=== PATIENT | male | born 1975 | race Caucasian/White ===

== ENCOUNTER 2019-12-17 11:52 | Emergency (ER) | payer BC, SELFPAY ==
[2019-12-17 12:06] VITALS: BP 119/63; PULSE 74; RESP 16; TEMP 36.2; O2SAT 98
--- NOTE | 2019-12-17 12:36 | ED.BACK ---
HPI - Back Pain/Injury General Chief Complaint: Back Pain/Injury Stated Complaint: back pain Time Seen by Provider: 12/17/19 12:36 Source: patient and RN notes reviewed Mode of arrival: ambulatory Limitations: no limitations History of Present Illness HPI Narrative: 44-year-old male presents with concern for left low back pain for 3 days. Denies any injury, trauma. Denies fever, perianal anesthesia, loss of bowel or bladder function, hematuria, scrotal pain, abdominal pain, nausea, vomiting. Reports pain worsens with position changes, bending, twisting. MD elicited complaint: back pain Related Data Home Medications Medication Instructions Recorded Confirmed Aspir-81 12/17/19 Fish Oil 12/17/19 multivitamin 12/17/19 Allergies Allergy/AdvReac Type Severity Reaction Status Date / Time No Known Allergies Allergy Mild Unverified 09/08/07 17:14 Review of Systems Review of Systems: Narrative: CONSTITUTIONAL: Denies malaise, chills, sweats, or fever. CARDIOVASCULAR: Denies chest pain, palpitations, or edema. RESPIRATORY: Denies cough or dyspnea. GASTROINTESTINAL: Denies abdominal pain, nausea, vomiting, diarrhea, bloody, or mucous stools. GENITOURINARY: Denies dysuria or hematuria. SKIN: Denies bruising, redness MUSCULOSKELETAL: Reports left low back pain that radiates to the left buttock and thigh NEUROLOGIC: Denies numbness, weakness, or headache. All systems reviewed & are unremarkable except as noted in HPI and below PMFSH Social History Social History Smoking status: Former smoker Smoking end date: 08/03/04 Alcohol intake: current Comments At time of signature, agree with nursing past medical, surgical, social and family history. There is no relevant family history pertinent to the presenting complaint Exam Narrative: Exam Narrative: GENERAL: Well-appearing, well-nourished, and in no acute distress. HEAD: Normocephalic, atraumatic. EYES: PERRLA and EOMI. NECK: Supple. No lymphadenopathy. CHEST: Clear to auscultation. No respiratory distress. HEART: Regular rate and rhythm. Distal pulses palpable and equal, cap refill <3 seconds ABDOMEN: Soft, nontender, nondistended, normal active bowel sounds, no palpable or pulsatile masses. No CVA tenderness MUSCULOSKELETAL: Normal range of motion and strength in all extremities; 5/5 strength with hip flexion and extension, dorsiflexion and extension, knee flexion and extension, plantar flexion and extension. Normal sensation in dermatomal distributions with sensitivity to light touch and pain. No midline back tenderness to palpation. No paraspinal tenderness. Transfers from lying to sitting to standing. SKIN: Warm, dry, no rash. No ecchymosis, erythema, open wounds to back. NEURO: No focal deficits. Alert and oriented x3. Reflexes intact. Normal gait. PSYCH: Normal mood and affect Course Course Emergency Course: Patient is aware of diagnosis, understands and agrees to treatment plan. Anticipatory guidance given. Patient agrees to follow-up as directed and is aware of reasons to seek care at the emergency department. Portions of this record may have been created with voice recognition software Vital Signs Vital signs: Vital Signs Temperature 97.1 F L 12/17/19 12:06 Pulse Rate 74 12/17/19 12:06 Respiratory Rate 16 12/17/19 12:06 Blood Pressure 119/63 12/17/19 12:06 Pulse Oximetry 98 12/17/19 12:06 Temperature 97.1 F L 12/17/19 12:06 Pulse Rate 74 12/17/19 12:06 Respiratory Rate 16 12/17/19 12:06 Blood Pressure 119/63 12/17/19 12:06 Pulse Oximetry 98 12/17/19 12:06 Reviewed. MDM - Back Pain/Injury MDM Narrative Medical decision making narrative: No risk factors or findings concerning for epidural abscess, diskitis, vertebral osteomyelitis, cord compression, cauda equina, vertebral fracture or bone malignancy, AAA, or pyelonephritis. Patient instructed to consider further imaging and workup through their primary care phy
== END 2019-12-17 12:45 | disposition home or self-care (01) ==
PROVIDERS: Emergency Provider Nurse Practitioner; PCP Family Medicine
DX: M54.5 Low back pain (principal); Z87.891 Personal history of nicotine dependence; I10 Essential (primary) hypertension; Z95.2 Presence of prosthetic heart valve
CPT/HCPCS: 99213; G0463

== ENCOUNTER 2019-12-22 06:24 | Emergency (ER) | payer BC, SELFPAY ==
--- NOTE | ~2019-12-22 | CT_ITS ---
EXAMINATION: CT lumbar spine wo con DATE: 12/22/2019 07:37 INDICATION: Low back pain TECHNIQUE: Computed tomography (CT) of the lumbar spine was performed without intravenous contrast. A utomated exposure control and iterative reconstruction technique were employed. The dose-length produ ct was 1101.52 mGy-cm. COMPARISON: None FINDINGS: 3 mm retrolisthesis L4 on L5. There is severe disc height loss with vacuum phenomena and mild degener ative endplate changes at L5-S1. There is vacuum phenomena within the disc space as well as at the po sterior peripheral margin of a large central disc extrusion which will be further detailed below. Giulia tebral body heights are normal. No fractures. Additional mild disc height loss at T12-L1, L1-L2 and L 4-L5. The mid to upper lumbar central canal is congenitally small. Paravertebral soft tissues are unr emarkable. The following disc levels are specifically discussed: T12-L1: The disc does not extend beyond the endplate margin. There is mild bilateral facet joint oste oarthritis. There is no neural foraminal stenosis. There is no central canal stenosis. L1-L2: The disc does not extend beyond the endplate margin. There is mild bilateral facet joint osteo arthritis. There is no neural foraminal stenosis. There is no central canal stenosis. L2-L3: Disc is mildly bulging. There is altered left and moderate right facet joint osteoarthritis. T here is no neural foraminal stenosis. There is no central canal stenosis. L3-L4: Disc is mildly bulging. There is mild left and mild to moderate right facet joint osteoarthrit is. There is mild bilateral neural foraminal stenosis. There is mild central canal stenosis. L4-L5: Disc is bulging. There is mild left and mild to moderate right facet joint osteoarthritis. The re is mild to moderate bilateral neural foraminal stenosis. There is mild central canal stenosis at t he level of the disc. There is moderate stenosis cephalad to the level of the disc and severe stenosi s: The level of the disc due to increased epidural fat. L5-S1: Disc is bulging with superimposed annular fissure and large central disc extrusion which exten ds from foraminal zone to foraminal zone with disc material extending 6 mm caudal to the level of the superior endplate of S1 as previously noted there is a 9 x 5 x 4 mm collection of gas likely related to vacuum phenomena which occupies a significant portion of the remaining central canal which projec ts beyond the margins of the disc extrusion is unclear whether this represents vacuum phenomena from the disc space, vacuum phenomena within within a synovial cyst arising from the left facet joint or s mall amount of gas of indeterminate etiology trapped within the thecal sac. No stranding within the e pidural fat to suggest an inflammatory process. There is mild to moderate left and mild right facet j oint osteoarthritis. There is moderate bilateral neural foraminal stenosis. There is moderate to prachi re central canal stenosis. IMPRESSION: 1. Severe spondylosis with annular fissure and extruded disc at L5-S1. Small collection of gas at the periphery of the disc extrusion could represent vacuum phenomena either within the extrusion, within an adjacent synovial cyst or of indeterminate etiology within the thecal sac. Mild spondylosis in th e more cephalad lumbar spine. 2. Central canal stenosis in the lower lumbar spine disproportionate to the degree of spondylosis in part to both a congenitally small central canal as well as increased epidural fat. Reviewed, dictated and finalized at location A. IMPRESSION: 1. Severe spondylosis with annular fissure and extruded disc at L5-S1. Small co llection of gas at the periphery of the disc extrusion could represent vacuum vivienne westbrook
[2019-12-22 06:30] VITALS: BP 147/81; PULSE 81; RESP 16; TEMP 36.1; O2SAT 96
--- NOTE | 2019-12-22 07:19 | ED.BACK ---
HPI - Back Pain/Injury General Chief Complaint: Back Pain/Injury Stated Complaint: LEFT LEG NUMB Time Seen by Provider: 12/22/19 07:02 Source: patient Mode of arrival: ambulatory Limitations: no limitations History of Present Illness HPI Narrative: THis patient is a 44 year old male who presents with c/o lower back pain x 1 week. Patient states he noticed pain to his lower back last week. He was evaluated at [facility] on 12/17/19 and he was prescribed flexeril. He has also been taking ibuprofen 600 mg every 6 hours . He reports his pain was improving but he noticed last night his pain radiated down his left leg. He states he also had some numbness to left leg but it resolved on his way to ER. He denies associated fever, chills, nausea, vomiting, focal weakness, urinary or bowel incontinence or saddle anesthesia. He was told to follow up with his PCP but he has not called to arrange appointment. MD elicited complaint: back pain Timing: intermittent Pain scale (0-10): 6 Location: lumbar spine Radiation: buttocks and left upper leg Associated symptoms: denies other symptoms and numbness Treatments prior to arrival: NSAIDS Related Data Home Medications Medication Instructions Recorded Confirmed Aspir-81 12/17/19 Fish Oil 12/17/19 multivitamin 12/17/19 Allergies Allergy/AdvReac Type Severity Reaction Status Date / Time No Known Allergies Allergy Mild Unverified 12/22/19 06:35 Review of Systems Review of Systems: All systems reviewed & are unremarkable except as noted in HPI and below Constitutional: Constitutional: Denies chills and Denies fever(s) Gastrointestinal: Gastrointestinal: Denies abdominal pain, Denies diarrhea, Denies nausea and Denies vomiting Genitourinary: Genitourinary: Denies hematuria, Denies oliguria, Denies dysuria and Denies urinary frequency Musculoskeletal: Musculoskeletal: Reports back pain Neurologic: Denies headache(s), Denies focal weakness, Reports numbness and Denies weakness PMF Past Medical History Medical History (Updated 12/22/19 @ 08:39 by Kelsey Isaac MD) Essential (primary) hypertension Generalized anxiety disorder Surgical History Surgical History (Updated 12/22/19 @ 07:20 by Kelsey Isaac MD) History of prosthetic heart valve Social History Social History Smoking status: Former smoker Smoking end date: 08/03/04 Alcohol intake: current Gender identity (if verbalized by the patient): Male Exam Const: General: no acute distress and alert Orientation/consciousness: patient oriented x3 HENMT: Head: normocephalic and atraumatic Face and sinus: sinuses nontender and face symmetric Throat: tonsils normal and uvula midline Eyes: Pupils: Equal, round and reactive pupils present EOM: EOMs intact bilaterally Chest: Chest palpation & inspection: normal inspection of the chest Resp: Effort & Inspection: normal respiratory effort and no retractions Auscultation: clear to auscultation bilaterally Cardio: Rate: regular rate Rhythm: regular rhythm Heart sounds: Murmur heart sound present systolic GI: Auscultation: normal bowel sounds Back/Spine/Pelvis: Back: no CVA tenderness Skin: General skin exam: normal color Rashes: no rashes Neuro: General: patient oriented x3, moves all extremities, no meningeal signs, no focal motor deficits and CN's II-XI intact bilaterally Cranial nerves: Yes CN's II-XII intact bilaterally Speech: normal speech Gait exam (Neuro): Normal gait present Motor exam (neuro): 5/5 motor strength present throughout Sensory Exam: normal sensation Extrem: General: normal to inspection and no pedal edema Psych: Mental Status: mental status grossly normal Course Consultations Consultation #1: I Discussed CT findings with Dr. Booth, [facility], who will follow up patient as outpatient. He will need outpatient MRI and pain management Date: 12/22/19 Time: 08:31 Consultation #2: I Discussed case with
[2019-12-22] MEDS: methylPREDNISolone SOD SUCC 125 MG VIAL IM (07:25)
[2019-12-22] MEDS: ONDANSETRON HCL ODT 4 MG TABLET PO (07:25)
[2019-12-22] MEDS: KETOROLAC (*BKC) 60 MG/2 ML VIAL IM (07:26)
[2019-12-22 08:55] VITALS: BP 124/60; PULSE 70; RESP 16; O2SAT 98
== END 2019-12-22 08:55 | disposition home or self-care (01) ==
PROVIDERS: Emergency Provider General Practice; PCP Family Medicine
DX: M51.16 Intervertebral disc disorders with radiculopathy, lumbar region (principal); I10 Essential (primary) hypertension; Z87.891 Personal history of nicotine dependence
CPT/HCPCS: 72131; 96372; 99284; A9270; J1885; J2930

== ENCOUNTER 2020-01-04 12:55 | Outpatient (CLI) | payer BC, SELFPAY ==
--- NOTE | ~2020-01-04 | MR_ITS ---
EXAMINATION: MR lumbar spine wo con DATE: 01/04/2020 13:55 INDICATION: Lumbar spinal stenosis with neurogenic claudication. TECHNIQUE: Magnetic resonance imaging (MRI) of the lumbar spine was performed without intravenous con trast. Sequences included sagittal T2-weighted FSE, sagittal T2-weighted FS FSE, sagittal T1-weighted FSE, and axial T2-weighted FSE. COMPARISON: CT lumbar spine 12/22/2019 FINDINGS: There is 3 mm retrolisthesis of L5 on S1. There is mild chronic anterior wedging of T12 and L1 vertebral bodies. There are Schmorl's nodes at T11-T12 and T12-L1. There is mildly decreased disc height at L4-L5 and severely decreased disc height at L5-S1. Epidural lipomatosis is noted. The dist al spinal cord signal intensity is normal. The conus medullaris is at L1. The following disc levels a re specifically discussed: L1-L2: The disc does not extend beyond the endplate margin. There is mild bilateral facet joint osteo arthritis. There is no neural foraminal stenosis. There is no central canal stenosis. L2-L3: The disc does not extend beyond the endplate margin. There is moderate right and mild left fac et joint osteoarthritis. There is no neural foraminal stenosis. There is no central canal stenosis. L3-L4: The disc does not extend beyond the endplate margin. There is mild bilateral facet joint osteo arthritis. There is no neural foraminal stenosis. There is no central canal stenosis. L4-L5: The disc is bulging and has an annular fissure. There is mild bilateral facet joint osteoarthr itis. There is mild bilateral neural foraminal stenosis. There is mild central canal stenosis. L5-S1: The disc is bulging with superimposed left central extrusion that abuts the left S1 nerve root . There is moderate bilateral facet joint osteoarthritis. There is mild right and moderate left neura l foraminal stenosis. There is mild central canal stenosis. IMPRESSION: 1. Severe lower lumbar spondylosis. Reviewed, dictated and finalized at location A.
== END 2020-01-04 12:56 | disposition home or self-care (01) ==
PROVIDERS: PCP Family Medicine; Visit Provider Family Medicine
DX: M48.061 Spinal stenosis, lumbar region without neurogenic claudication (principal); M47.816 Spondylosis without myelopathy or radiculopathy, lumbar region
CPT/HCPCS: 72148

== ENCOUNTER 2020-03-21 21:51 | Inpatient (IN) | payer BC, SELFPAY ==
--- NOTE | ~2020-03-21 | CT_ITS ---
EXAMINATION: CT brain wo con DATE: 03/22/2020 15:47 INDICATION: Confusion TECHNIQUE: Computed tomography (CT) of the head was performed without intravenous contrast. Sagittal and coronal reconstructions were performed. The mA was adjusted according to patient size. Iterative reconstruction technique was employed. The dose-length product was 681.00 mGy-cm. COMPARISON: None FINDINGS: No acute intracranial hemorrhage, acute infarction or abnormal extra axial fluid collection. Ventricl es are normal and symmetric. No mass/mass effect. The orbits, paranasal sinuses and mastoid air cells are normal. IMPRESSION: 1. Normal brain. No acute intracranial process. Reviewed, dictated and finalized at location A.
--- NOTE | ~2020-03-21 | CT_ITS ---
EXAMINATION: CTA chest abdomen pelvis DATE: 03/21/2020 23:17 INDICATION: Chest pain, hypotension and fever. TECHNIQUE: Computed tomographic angiography (CTA) of the chest, abdomen, and pelvis was performed wit hout and with 100 mL Omnipaque-350 intravenous contrast. Volume-rendered 3D-reconstructions of the ao rta and large arteries were constructed by the technologist on a separate workstation. Automated expo sure control and iterative reconstruction technique were employed. The dose-length product was 2164 m Gy-cm. COMPARISON: None FINDINGS: Chest: There are patchy groundglass opacities throughout both lungs most prominent in the dependent lower lo bes. There are a few scattered <4 mm pulmonary nodules predominantly at the posterior segment of the right upper lobe. Tiny left pleural effusion. Mild discoid atelectasis in the lingula and left lower lobe. Heart size is normal. No pericardial effusion. Median sternotomy wires and aortic valve repair. Thoracic aorta is normal in caliber with no dissection. Although not performed as a dedicated pulmon louise embolism protocol there is relatively good contrast opacification of the pulmonary arteries demon strating no pulmonary embolism. Mild right hilar and right paratracheal lymphadenopathy which is like ly reactive. Mild bilateral gynecomastia. Abdomen/pelvis: Liver, gallbladder, pancreas, bilateral adrenal glands and left kidney are normal. A couple tiny low- attenuation likely cyst in the right kidney which are too small to definitively characterize. There a re several small hypoenhancing lesions in the spleen the majority are seen peripherally which may con sidering suggests possibility of infection or infarcts. Bowels including the appendix are normal. Kyle dder is normal. No free intraperitoneal gas or fluid. No pathologically enlarged abdominal or pelvic lymphadenopathy. Normal caliber abdominal aorta with no dissection. Incidentally noted are bilateral accessory renal arteries. Severe spondylosis at the lumbosacral junction. IMPRESSION: 1. Normal aorta with no aneurysm or dissection. 2. Patchy groundglass opacities throughout both lungs with dependent predominance which would favor a telectasis or mild pulmonary edema over pneumonia. 3. A few small nodules most prominently in the posterior segment of the right upper lobe which are mo st likely infectious/inflammatory in etiology. 4. Several nonspecific small hypoenhancing lesions at the spleen, several with peripheral wedge-shape d appearance suggesting infarcts with differential including granulomatous disease. 5. Mild right hilar and right paratracheal lymphadenopathy which is likely reactive. Reviewed, dictated and finalized at location A. IMPRESSION: 1. Normal aorta with no aneurysm or dissection. 2. Patchy groundglass opacities throughout both lungs with dependent predominan ce which would favor atelectasis or mild pulmonary edema over pneumonia. 3. A few small nodules most prominently in the posterior segment of the right u pper lobe which are most likely infectious/inflammatory in etiology. 4. Several nonspecific small hypoenhancing lesions at the spleen, several with peripheral wedge-shaped appearance suggesting infarcts with differential includ ing granulomatous disease. 5. Mild right hilar and right paratracheal lymphadenopathy which is likely reac tive.
[2020-03-21 21:53] VITALS: BP 89/60; PULSE 108; RESP 17; TEMP 36.9; O2SAT 98
--- NOTE | 2020-03-21 21:54 | ED.CHESTPAIN ---
HPI - Chest Pain General Chief Complaint: Chest Pain Stated Complaint: Chest pain Time Seen by Provider: 03/21/20 21:54 Source: patient and family Mode of arrival: ambulatory Limitations: no limitations History of Present Illness HPI narrative: Patient is a 44-year-old male with a history of aortic valve replacement 2008, 2014, who presents to the emergency department for evaluation of chest pain. Patient states he has had chest pain this evening that started approximately 2 hours ago. Described as initial pressure over the chest with radiation to the right shoulder. Associated diaphoresis, denies nausea, vomiting or shortness of breath. Patient states he used to be on anticoagulation, but that was discontinued after his last valve replacement. Patient has been seeing Dr. Malik's office for work-up of fever, myalgias and has had 2- COVID swabs, relatively unremarkable laboratory testing since late January. Patient had an echocardiogram done in Dr. Yoder's office today, but does not have the results of this back yet. Patient denies any sick contacts. No rhinorrhea, sore throat, cough. No leg swelling, rashes, denies any leg pain. Related Data Home Medications Medication Instructions Recorded Confirmed aspirin 81 mg tablet,delayed 81 mg PO DAILY 12/28/19 release multivitamin 1 tablet PO DAILY 12/28/19 omega-3 fatty acids 1,000 mg 1,000 mg PO DAILY 12/28/19 capsule Allergies Allergy/AdvReac Type Severity Reaction Status Date / Time No Known Allergies Allergy Mild Unverified 03/21/20 22:02 Review of Systems Review of Systems: Narrative: CONSTITUTIONAL: Reports fever, chills, diaphoresis EYES: Denies visual changes, redness, or discharge. ENT: Denies rhinorrhea, congestion, sore throat, or otalgia. CARDIOVASCULAR: Reports chest pain, denies palpitations, or edema. RESPIRATORY: Denies cough or dyspnea. GASTROINTESTINAL: Denies abdominal pain, nausea, vomiting, or diarrhea. GENITOURINARY: Denies dysuria or hematuria. SKIN: Denies rash or itching. MUSCULOSKELETAL: Denies back pain, joint pain, or myalgia. NEUROLOGIC: Denies headache, numbness, or weakness. ON LICENSE OF [facility] Past Medical History Medical History (Updated 03/22/20 @ 00:09 by Kimberly Villalta MD) Elevated liver enzymes Essential (primary) hypertension Generalized anxiety disorder Herniated lumbar intervertebral disc senior living (current) use of anticoagulants Prediabetes Pure hypercholesterolemia, unspecified Surgical History Surgical History History of prosthetic heart valve Social History Social History Smoking status: Former smoker Smoking end date: 08/03/04 Alcohol intake: current Gender identity (if verbalized by the patient): Male Exam Narrative: Exam Narrative: GENERAL: Awake, alert, conversant HEAD: Normocephalic, atraumatic. EYES: PERRLA and EOMI. ENT: Nares clear, no rhinorrhea or epistaxis. Mucous membranes moist. NECK: Supple. CHEST: No respiratory distress, breathing even and non labored HEART: Regular rate, sinus rhythm ABDOMEN:Non distended, non tender EXTREMITIES: Normal range of motion. No edema. SKIN: Warm, dry, no rash. NEURO:No focal deficits. Alert and oriented x3 Course Vital Signs Vital signs: Vital Signs Temperature 36.9 C 03/21/20 21:53 Pulse Rate 108 H 03/21/20 21:53 Respiratory Rate 17 03/21/20 21:53 Blood Pressure 89/60 L 03/21/20 21:53 Pulse Oximetry 98 03/21/20 21:53 Temperature 36.9 C 03/21/20 21:53 Pulse Rate 88 03/21/20 23:40 Respiratory Rate 16 03/21/20 23:40 Blood Pressure 106/69 03/21/20 23:40 Pulse Oximetry 96 03/21/20 23:40 MDM - Chest Pain MDM Narrative Medical decision making narrative: Patient is a 44-year-old male with a history of aortic valve replacement in [address] Yoder who presented for evaluation of chest
--- NOTE | 2020-03-21 22:10 | ECG_ITS ---
Measurements Intervals [place] Rate: 101 P: 31 OH: 135 QRS: 52 QRSD: 100 T: 65 QT: 380 QTc: 495 Interpretive Statements SINUS TACHYCARDIA DELAYED PRECORDIAL R/S TRANSITION MINIMAL Q WAVES- INFERIOR LEADS BORDERLINE ST ABNORMALITY- HIGH LATERAL LEADS BASELINE ARTIFACT- I, III BORDERLINE ECG Electronically Signed On 03-22-2020 7:01:51 CDT by Nj Cota D.O.
[2020-03-21] MEDS: ASPIRIN 81 MG CHEWABLE TABLET 324 MG PO (22:19)
[2020-03-21] MEDS: SODIUM CHLORIDE 0.9% IV 1,000 ML 999 ML IV CONT ×2 (22:19→22:53)
[2020-03-21 22:36] LABS: Basophils Percent Auto 0.3 % (0.2-1.2); Eosinophils Percent Auto 0.2 % (0-4.4); Immature Granulocyte Absolute 0.09 K/mm3 (0.00-0.031); Immature Granulocyte Percent A 0.7 % (0-0.5); Lymphocytes Percent Auto 7.5 % (18.3-44.2); Mean Corpuscular HGB Conc 33.3 g/dl (32-36); Mean Corpuscular Hemoglobin 28.9 pg (26-34); Mean Corpuscular Volume 86.6 fl (80-100); Mean Platelet Volume 8.7 fl (7.4-10.4); Monocytes Absolute Auto 1.1 K/mm3 (0.1-0.6); Monocytes Percent Auto 8.3 % (2.6-8.5); Neutrophils Absolute Auto 11.1 K/mm3 (1.3-6.7); Platelet Count Result 186 k/mm3 (150-375); Red Blood Count 3.81 M/mm3 (4.6-6.20); White Blood Count 13.3 K/mm3 (4.5-10.0)
[2020-03-21 22:45] LABS: INR 1.3; Prothrombin Time 15.8 Seconds (11.1-14.7)
[2020-03-21 22:46] LABS: Partial Thromboplastin Time 42.8 SECONDS (22.3-36.8)
[2020-03-21 22:51] LABS: Lactic Acid Reflex 1.5 mmol/L (0.7-2.1)
[2020-03-21 22:55] LABS: Alanine Aminotransferase 49 U/L (4-50); Albumin Level 3.6 g/dL (3.5-5.1); Alkaline Phosphatase 94 U/L (38-126); Anion Gap 11 mmol/L (8-16); Aspartate Amino Transferase 75 U/L (17-59); Bilirubin,Total 0.6 mg/dL (0.2-1.3); Blood Urea Nitrogen 2 mg/dL (9-20); Calcium 8.4 mg/dL (8.4-10.2); Carbon Dioxide 26 mmol/L (22-30); Chloride 98 mmol/L (98-107); Estimated CRCL calculation 120 ml/min; Estimated Glomerular Filt Rate > 60; Glucose 135 mg/dL (75-110); Sodium 135 mmol/L (137-145)
[2020-03-21 23:11] LABS: CRP 20.2 mg/dL (<1.0); NT Pro B Type Natriuretic Pept 4100 PG/ML (5-100)
[2020-03-21 23:40] VITALS: BP 106/69; PULSE 88; RESP 16; O2SAT 96
[2020-03-22] VITALS (19 sets, daily range): BP systolic 90–151; BP diastolic 62–87; PULSE 78–126; RESP 18–40; TEMP 36.3–39.7; O2SAT 93–100; BMI 33.8
[2020-03-22] MEDS: ENOXAPARIN 100 MG/ML SYRINGE SUB-Q ×3 (00:02→22:00)
--- NOTE | 2020-03-22 01:21 | PM.IMHP ---
H&P: HPI History of Present Illness Date/Time: 03/22/20 01:21 Chief complaint: Elevated troponin, chest pain Narrative: This is a 44 year old male with known bioprosthetic aortic valve replaced in 2014 who presented to the hospital with a complaint of midsternal chest pain that radiated towards his back. He described his pain as pressure like and lasting approximately 15 minutes in duration. His chest pain resolved with time and did not require any medications. Associated symptoms included diaphoresis. Tonight he denies any recent swelling, cough, or shortness of breath. He believes that he has had fevers over the past month and has been tested for COVID-19 by his PCP approximately 4 days ago which was negative. He underwent an Echocardiogram today at his Patient Access Manager's office, Dr. Yoder. Currently the pateint is asymptomatic and has no complaints. In the ER tonight the patient was evaluated and his troponin was elevated at 1.260. EKG was obtained and did not demonstrate any ST segment deviation. Cardiology was consulted by ER provider and has asked that we admit the patient to the hospital for them and they will evaluate him in the morning. CTA chest was obtained which demonstrated patchy groundglass opacities throughout both lungs. He was swabbed for COVID-19. Review of Systems Review of Systems: All systems reviewed & are unremarkable except as noted in HPI and below PMFSH Past Medical History Medical History Elevated liver enzymes Essential (primary) hypertension Generalized anxiety disorder Herniated lumbar intervertebral disc [facility] (current) use of anticoagulants Prediabetes Pure hypercholesterolemia, unspecified Surgical History Surgical History History of prosthetic heart valve Social History Social History Smoking status: Former smoker Smoking end date: 08/03/04 Alcohol intake: current Substance use: unknown Gender identity (if verbalized by the patient): Male Sexual Orientation (if Verbalized by the Patient): Straight or Heterosexual Spiritual care concerns: No Comments [facility] reviewed and noncontributory. Meds Home Medications and Allergies Home Medications Medication Instructions Recorded Confirmed Type sertraline 100 mg tablet 100 mg PO DAILY #90 tablet 08/19/19 03/22/20 Rx losartan 25 mg tablet 25 mg PO BID #180 tablet 09/30/19 03/22/20 Rx aspirin 81 mg tablet,delayed 81 mg PO DAILY 12/28/19 03/22/20 History release multivitamin 1 tablet PO DAILY 12/28/19 03/22/20 History omega-3 fatty acids 1,000 mg 1,000 mg PO DAILY 12/28/19 03/22/20 History capsule alprazolam 0.5 mg tablet 0.5 mg PO DAILY PRN #10 tablet 01/02/20 03/22/20 Rx metoprolol succinate 50 mg 50 mg PO DAILY #90 tablet 03/16/20 03/22/20 Rx tablet,extended release 24 hr cyclobenzaprine 10 mg tablet 10 mg PO TID PRN #60 tablet 03/19/20 03/22/20 Rx Allergies Allergy/AdvReac Type Severity Reaction Status Date / Time No Known Allergies Allergy Mild Unverified 03/21/20 22:02 Vital Signs Vital Signs - 24 hr 03/21/20 21:53 03/21/20 23:40 03/22/20 00:59 Temperature 36.9 C 36.8 C Pulse Rate 108 H 88 82 Respiratory Rate 17 16 18 Blood Pressure 89/60 L 106/69 106/79 Pulse Oximetry 98 96 98 Exam Const: General: cooperative, no acute distress, alert and awake Nutritional Appearance: well nourished Orientation/consciousness: patient oriented x3 HENMT: Head: normal to inspection General nose exam: Normal external nose present Face and sinus: normal facial exam Mouth: Yes Normal oral and palatal mucosa present and Yes oropharynx normal Eyes: Pupils: Equal, round and reactive pupils present EOM: EOMs intact bilaterally Neck: Neck: supple and no JVD Thyroid: thyroid normal Lymphatic: lymphadenopathy not noted Resp: Effort [employer] Inspe
[2020-03-22] MEDS: ALPRAZolam 0.5 MG TABLET PO (06:42)
[2020-03-22] MEDS: KETOROLAC 15 MG/ML VIAL (*BKC) IV PUSH (08:41)
[2020-03-22] MEDS: METOPROLOL SUCCINATE EXT REL 50 MG TABCR PO (08:45)
[2020-03-22] MEDS: MULTIVITAMINS THERAPEUTIC TAB (*BKC) 1 TABLET PO (08:45)
[2020-03-22] MEDS: ASPIRIN 81 MG ENTERIC TABLET PO (08:45)
[2020-03-22] MEDS: OMEGA 3 POLYUNSAT FATTY ACIDS 1 GM CAP PO (08:45)
[2020-03-22] MEDS: LOSARTAN POTASSIUM 25 MG TABLET PO ×2 (08:46→18:00)
[2020-03-22] MEDS: SERTRALINE HCL 50 MG TABLET 100 MG PO (08:46)
[2020-03-22 08:54] LABS: Alveolar/Arterial O2 Gradient 130.2 mmHg; Fractional Inspired Oxygen 32 %; HCO3 ABG 20.3 mEq/l (22.0-26.0); Oxygen Content ABG 14.6 %vol (16.0-22.0); Oxygen Saturation ABG 94.9 % (95.0-100.0); Oxyhemoglobin 92.3 % THb (90.0-100.0); PCO2 ABG 27.1 mmHg (35.0-45.0); PO2 ABG 66.3 mmHg (80.0-100.0); PO2 FiO2 Ratio Arterial Blood 2.07 %; Total Hemoglobin 11.2 g/dL (12.0-18.0); pH ABG 7.492 (7.350-7.450)
[2020-03-22 08:55] LABS: Site Drawn RIGHT BRACHIAL
[2020-03-22 08:56] LABS: Device NASAL CANNULA
[2020-03-22 09:02] LABS: Lactic Acid Reflex 1.4 mmol/L (0.7-2.1)
[2020-03-22] MEDS: SODIUM CHLORIDE 0.9% IV 1,000 ML 999 ML IV CONT (09:35)
--- NOTE | 2020-03-22 12:09 | WPDCNINT ---
Assessment and Plan Assessment and plan (1) Sepsis: Code(s): A41.9 - Sepsis, unspecified organism Status: Acute Assessment and Plan: Patient presented with elevated white count, fever and was tachypneic this morning with shortness of breath. Initially I thought patient has either COVID-19 or community-acquired pneumonia this morning when I saw the patient after reviewing his CT. I checked ABG, lactic acid. Patient was given IV fluid bolus 1 L only due to elevated BNP and ground-glass opacities on his CT. I ordered echo at that time. Patient was started on empiric Rocephin and azithromycin for community-acquired pneumonia coverage Later I discovered the patient had echocardiogram done as an outpatient yesterday which showed mobile mass on his bioprosthetic aortic valve which suggests the patient may have infective endocarditis The lesions on his spleen on the CT. Patient denied any IV drug use. On my 2nd conversation with patient, he gave me a different history and suggested that he has been having fevers for last 1 month Lactic acid was checked this morning and was normal I will change antibiotics to vancomycin and cefepime Will likely need LADY for further evaluation of mass. Depending on blood culture and LADY results, will consult infectious disease (2) Endocarditis: Code(s): I38 - Endocarditis, valve unspecified Status: Acute Assessment and Plan: Echo done as an outpatient yesterday in the office showed 1 cm x 0.9 cm mobile mass on a prosthatic aortic valve Blood cultures sent and pending I will start empiric vancomycin and cefepime Will likely need LAYD for further evaluation (3) Chest pain: Qualifiers: Chest pain type: unspecified Qualified Code(s): R07.9 - Chest pain, unspecified Code(s): R07.9 - Chest pain, unspecified Status: Acute Assessment and Plan: chest plan appears to be pleuritic from history and exam but patient does have elevated troponin. EKG did not show ST elevation On aspirin, Lovenox, beta shruthi and losartan echocardiogram done yesterday as an outpatient reviewed further management per Cardiology (4) Elevated troponin: Code(s): R79.89 - Other specified abnormal findings of blood chemistry Status: Acute Assessment and Plan: see above (5) Suspected COVID-19 virus infection: Code(s): Z20.828 - Contact with and (suspected) exposure to other viral communicable diseases Status: Acute Assessment and Plan: COVID-19 suspected. SARS-CoV-2 PCR sent and results pending Patient is in Airborne, Droplet and Contact Isolation (6) Pure hypercholesterolemia, unspecified: Code(s): E78.00 - Pure hypercholesterolemia, unspecified Status: Chronic Assessment and Plan: Continue fish oil. (7) Essential (primary) hypertension: Code(s): I10 - Essential (primary) hypertension Status: Chronic Assessment and Plan: Monitor blood pressure. blood pressure uncontrolled range at this time Continue home antihypertensives. (8) History of prosthetic heart valve: Code(s): Z95.2 - Presence of prosthetic heart valve Status: Acute Assessment and Plan: See above Additional Plan Case discussed with Dr. Stephens and Dr. Bill. Cardiology plans to transfer pt to [facility] for further eval. Professor Of Family Medicine Consult Note Consult date: 03/22/20 Time Seen: 08:30 HPI: Derrick Garcia is a 44 year old male with past medical history of bioprosthetic aortic valve in 2014 presented last night to ED with chief complaint of chest pain. At that time patient was found to be having elevated troponin. He also mentioned fever and chills. Patient was admitted to step-down unit with acute coronary syndrome and as COVID-19 PUI. I was called by nurse to see patient emergently due to high fever and patient complaining of shortness of breath. When I saw the patient he told me that he
--- NOTE | 2020-03-22 12:24 | PM.CNCAR ---
Assessment and Plan Assessment and plan (1) Prosthetic valve endocarditis: Code(s): T82.6XXA - Infection and inflammatory reaction due to cardiac valve prosthesis, initial encounter; I38 - Endocarditis, valve unspecified Status: Acute Assessment and Plan: [address] mechanical AVR, patient mismatch. 03/[address] at [place]. Echo 03/21/20 mobile 0.9x1.0cm vegetation on bioprosthetic 23mm [employer] Ease AVR peak anamaria 5m/s mean gradient 62mmHg AVA0.8cm2 DVI .19 trivial AI, consistent with significant prosthetic valve dysfunction. Possible septic emboli to the spleen. Intermittent confusion. Elevated troponin 2.7 peak thus far. Minimal luminal irregularities on [facility] 2014. 03/20/20 Blood Cx negative x1, 03/21/20 blood cx x2 pending. Likely subacute endocarditis with over 1 month F/C, weakness, fatigue, SOB, decreased activity tolerance. Noncompliant with follow up since 2014. - CT chest abdomen pelvis does not reveal evidence of aneurysm / dissection or clear evidence of root abscess however concern remains. Transesophageal echocardiogram would be beneficial in further clarification, however, patient requires higher level of care then able to be provided at [facility] with CT surgery For likely need for redo AVR although complicated as this would be his 3rd sternotomy in 11 years. Given size of agitation and patient's clinical picture doubt antibiotics alone will successfully clear prosthetic valve endocarditis. Patient agrees to transfer to [place]. Transfer request initiated. Awaiting call back. -Continue broad-spectrum antibiotics. Patient is currently COVID rule out although has fairly recent negative COVID swab times to unlikely. CT head when negative. Systemic anticoagulation given last night and continue this a.m. by Critical Care. Patient is critically ill. Spent over 70 minutes in the care of this patient. Recommendations to follow. (2) Elevated troponin: Code(s): R79.89 - Other specified abnormal findings of blood chemistry Status: Acute Assessment and Plan: Concern for septic emboli, possible embolization to coronary arteries, anticoagulation. CT evidence of splenic infarcts. Toprol XL 50 mg daily. Caution with losartan. Monitor BP closely. Would favor reduction provided patient is not excessively hypertensive. Patient relatively hypotensive at presentation. (3) Chest pain: Qualifiers: Chest pain type: unspecified Qualified Code(s): R07.9 - Chest pain, unspecified Code(s): R07.9 - Chest pain, unspecified Status: Acute Assessment and Plan: as above. Doubt ACS with primary acute plaque rupture (4) Sepsis: Code(s): A41.9 - Sepsis, unspecified organism Status: Acute Assessment and Plan: IV ABx Azithromycin, cefepime, vancomycin. (5) Noncompliance: Code(s): Z91.19 - Patient's noncompliance with other medical treatment and regimen Status: Acute Assessment and Plan: with cardiology follow-up. (6) Suspected COVID-19 virus infection: Code(s): Z20.828 - Contact with and (suspected) exposure to other viral communicable diseases Status: Acute Assessment and Plan: History of negative swab times to as an outpatient, pending at this time. History of Present Illness History of Present Illness Consult date/time: Date of service:03/22/20 12:24 This is a cardiology consultation at the request of Requesting physician: Kimberly Villalta MD Consult reason: chest pain and Other (elevated troponin) Reason For Visit: Elevated troponin, chest pain Narrative: Patient is a 44-year-old male with past medical history significant for bicuspid aortic valve who underwent [place] mechanical 19 mm valve at [facility] 2008 for severe AI and dilated left ventricle. Patient had been noncompliant with follow-up with Dr. Willian Yoder on was last seen in the office in
[2020-03-22 13:59] LABS: SARS-CoV-2 RNA PCR Negative
[2020-03-22] MEDS: SODIUM CHLORIDE 0.9% IV 1,000 ML 100 ML IV CONT (15:54)
--- NOTE | 2020-03-22 16:05 | PM.TDS ---
Transfer Discharge Sum: Prov Provider Date of admission: 03/21/20 23:59 Primary care physician: Willian Malik MD Admitting clinician: Derrick Echevarria MD Attending physician on admission: Derrick Echevarria Consults: 03/22/20 00:01 Consult to Physician Routine Comment: Consulting Provider: Ekta Kay Reason for consultation: Elevated troponin, chest pain Has provider been notified: Yes Attending physician on discharge: Billy Stephens Discharging clinician: Billy Stephens Anticipated date of transfer: 03/22/20 Receiving physician/facility: Dr Derrick Mai at [place] (arranged by sand blaster) DS: Admitting Diagnosis Admitting Diagnosis Admitting Diagnosis: Elevated troponin, chest pain, known aortic valve mass DS: Discharge Diagnosis Discharge Diagnosis (1) Prosthetic valve endocarditis: Code(s): T82.6XXA - Infection and inflammatory reaction due to cardiac valve prosthesis, initial encounter; I38 - Endocarditis, valve unspecified Status: Acute Assessment and Plan: Echo in the Cardiology clinic on 03/21 showing 1cm mobile AV mass on the ventricular side of the prosthesis. He states he has had fevers for about 1 month. He has been tested for COVID x2 over the past few weeks. He does have splenic infarcts as well as lung nodules. CT brain not showing any concerning findings. He may need MRI if he has any neurologic changes or meningeal signs. BCx negative so consider marantic or HACEK. Fever now related to infectious process. (2) Sepsis: Code(s): A41.9 - Sepsis, unspecified organism Status: Acute Assessment and Plan: Present on admission with fever, elevated WBC and tachycardia. Related to IE. As above. (3) Chest pain: Qualifiers: Chest pain type: unspecified Qualified Code(s): R07.9 - Chest pain, unspecified Code(s): R07.9 - Chest pain, unspecified Status: Acute Assessment and Plan: EKG showing borderline ST abnormalities in the high lateral leads and poor R-wave progression. Inferior Q waves noted as well. Trop has climbed now to 3.3. Cardiology following. Echo performed in the Cardiology clinic on 03/21 showing vegitation but no wall motion abnormalities. Continue ASA, Metoprolol and Lovenox full dose. This could be related to cardiac abscess. Discussed with Cardiology with plan for transfer to tertiary hospital. (4) Elevated troponin: Code(s): R79.89 - Other specified abnormal findings of blood chemistry Status: Acute Assessment and Plan: As above. (5) Leukocytosis: Qualifiers: Leukocytosis type: unspecified Qualified Code(s): D72.829 - Elevated white blood cell count, unspecified Code(s): D72.829 - Elevated white blood cell count, unspecified Status: Acute Assessment and Plan: WBC 13K on admission. Related to above. Blood cultures from 03/20 NGTD. BCx form 03/21 pending. Continue broad spectrum abx. (6) Suspected COVID-19 virus infection: Code(s): Z20.828 - Contact with and (suspected) exposure to other viral communicable diseases Status: Acute Assessment and Plan: Patient started on droplet isolation. COVID-19 results have returned negative so isolations topped. (7) Essential (primary) hypertension: Code(s): I10 - Essential (primary) hypertension Status: Chronic Assessment and Plan: BP monitored closely in ICU setting. Metoprolol continued. (8) Generalized anxiety disorder: Code(s): F41.1 - Generalized anxiety disorder Status: Chronic Assessment and Plan: Mood stable. Continue Xanax prn. Transfer Discharge Sum: Med Medications Active and Home Medications: Home Medications sertraline 100 mg tablet 100 mg PO DAILY #90 tablet 08/19/19 [Rx Confirmed 03/22/20] losartan 25 mg tablet 25 mg PO BID #180 tablet 09/30/19 [Rx Confirmed 03/22/20] aspirin 81
--- NOTE | 2020-03-22 17:16 | PC.NURSE ---
Spoke with [facility] transfer line. Patient has been accepted and is awaiting a bed.
[2020-03-23] VITALS (14 sets, daily range): BP systolic 108–141; BP diastolic 60–89; PULSE 84–105; RESP 23–44; TEMP 36.8–37.6; O2SAT 95–100; BMI 35.4
[2020-03-23] MEDS: SODIUM CHLORIDE 0.9% IV 1,000 ML 100 ML IV CONT ×2 (05:12→19:53)
[2020-03-23 07:54] LABS: Basophils Percent Auto 0.3 % (0.2-1.2); Eosinophils Percent Auto 0.3 % (0-4.4); Hematocrit 28.4 % (42.0-52.0); Hemoglobin 9.3 g/dL (14.0-18.0); Immature Granulocyte Absolute 0.13 K/mm3 (0.00-0.031); Immature Granulocyte Percent A 0.9 % (0-0.5); Lymphocytes Absolute Auto 1.06 K/mm3 (0.9-3.2); Lymphocytes Percent Auto 7.2 % (18.3-44.2); Mean Corpuscular HGB Conc 32.7 g/dl (32-36); Mean Corpuscular Hemoglobin 28.8 pg (26-34); Mean Corpuscular Volume 87.9 fl (80-100); Mean Platelet Volume 8.8 fl (7.4-10.4); Monocytes Absolute Auto 1.1 K/mm3 (0.1-0.6); Monocytes Percent Auto 7.2 % (2.6-8.5); Neutrophils Absolute Auto 12.4 K/mm3 (1.3-6.7); Neutrophils Percent Auto 84.1 % (45.5-73.1); Platelet Count Result 131 k/mm3 (150-375); Red Blood Count 3.23 M/mm3 (4.6-6.20); Red Cell Distribution Width 14.4 % (11.5-14.5); White Blood Count 14.7 K/mm3 (4.5-10.0)
[2020-03-23 08:07] LABS: Alanine Aminotransferase 37 U/L (4-50); Albumin Level 2.9 g/dL (3.5-5.1); Alkaline Phosphatase 83 U/L (38-126); Anion Gap 6 mmol/L (8-16); Aspartate Amino Transferase 64 U/L (17-59); Bilirubin,Total 0.7 mg/dL (0.2-1.3); Blood Urea Nitrogen 5 mg/dL (9-20); Calcium 7.9 mg/dL (8.4-10.2); Carbon Dioxide 24 mmol/L (22-30); Chloride 100 mmol/L (98-107); Estimated CRCL calculation 161 ml/min; Estimated Glomerular Filt Rate > 60; Glucose 118 mg/dL (75-110); Magnesium 1.6 mg/dL (1.6-2.3); Potassium 4.2 mmol/L (3.4-5.0); Sodium 130 mmol/L (137-145)
--- NOTE | 2020-03-23 08:58 | WPDINTPN ---
Progress Note: A&P Assessment and Plan (1) Sepsis: Code(s): A41.9 - Sepsis, unspecified organism Status: Acute Assessment and Plan: Patient presented on 03/23 with elevated white count, fever and was tachypnia with shortness of breath. Initially I thought patient has either COVID-19 or community-acquired pneumonia this morning when I saw the patient after reviewing his CT. I checked ABG, lactic acid. Patient was given IV fluid bolus 1 L only due to elevated BNP and ground-glass opacities on his CT. I ordered echo at that time. Patient was started on empiric Rocephin and azithromycin for community-acquired pneumonia coverage Later I discovered the patient had echocardiogram done as an outpatient yesterday which showed mobile mass on his bioprosthetic aortic valve which suggests the patient may have infective endocarditis The lesions on his spleen on the CT. Patient denied any IV drug use. On my 2nd conversation with patient, he gave me a different history and suggested that he has been having fevers for last 1 month Lactic acid was checked and was normal . Patient has been afebrile ICU and hemodynamically he has been stable white count is still elevated continue antibiotics to vancomycin and cefepime cultures negative at this time Will likely need LADY for further evaluation of mass. Continue IV fluids (2) Endocarditis: Code(s): I38 - Endocarditis, valve unspecified Status: Acute Assessment and Plan: Echo done as an outpatient yesterday in the office showed 1 cm x 0.9 cm mobile mass on a prosthatic aortic valve Blood cultures sent and negative will now continue empiric vancomycin and cefepime Will likely need LADY for further evaluation (3) Chest pain: Qualifiers: Chest pain type: unspecified Qualified Code(s): R07.9 - Chest pain, unspecified Code(s): R07.9 - Chest pain, unspecified Status: Acute Assessment and Plan: chest plan On presentation appeared to be pleuritic from history and exam but patient did have elevated troponin which have continue to increase EKG did not show ST elevation on presentation patient is on aspirin, Lovenox, beta shruthi and losartan echocardiogram done yesterday as an outpatient reviewed patient had cardiac catheterization in 2014 which showed minimal coronary disease and cardiology is concerned of embolization of coronary arteries patient is being transferred to [facility] for further evaluation (4) Elevated troponin: Code(s): R79.89 - Other specified abnormal findings of blood chemistry Status: Acute Assessment and Plan: see above (5) Suspected COVID-19 virus infection: Code(s): Z20.828 - Contact with and (suspected) exposure to other viral communicable diseases Status: Acute Assessment and Plan: COVID-19 ruled out. SARS-CoV-2 PCR was negative Patient was on Airborne, Droplet and Contact Isolation which now has been discontinued. (6) Pure hypercholesterolemia, unspecified: Code(s): E78.00 - Pure hypercholesterolemia, unspecified Status: Chronic Assessment and Plan: Continue fish oil. (7) Essential (primary) hypertension: Code(s): I10 - Essential (primary) hypertension Status: Chronic Assessment and Plan: Monitor blood pressure. blood pressure is soft at this time. I will discontinue losartan and hold beta-shruthi at this time under is blood pressure improved. (8) History of prosthetic heart valve: Code(s): Z95.2 - Presence of prosthetic heart valve Status: Acute Assessment and Plan: See above Additional Plan patient has been accepted at [facility] and is awaiting bed assignment. Subjective Date/time seen: 03/23/20 0730 Overnight events reviewed. Afebrile Vitals acceptable Patient awaits transfer to [facility] for further evaluation. This morning patient states that h
[2020-03-23] MEDS: ASPIRIN 81 MG ENTERIC TABLET PO (09:22)
[2020-03-23] MEDS: ENOXAPARIN 100 MG/ML SYRINGE SUB-Q ×2 (09:22→20:13)
[2020-03-23] MEDS: OMEGA 3 POLYUNSAT FATTY ACIDS 1 GM CAP PO (09:23)
[2020-03-23] MEDS: MULTIVITAMINS THERAPEUTIC TAB (*BKC) 1 TABLET PO (09:23)
[2020-03-23] MEDS: SERTRALINE HCL 50 MG TABLET 100 MG PO (09:23)
[2020-03-23] MEDS: oxyCODONE/ACETAMINOPHEN 5-325 MG TABLET 1 TABLET PO ×3 (11:17→20:09)
--- NOTE | 2020-03-23 19:21 | PM.TDS ---
Transfer Discharge Sum: Prov Provider Date of admission: 03/21/20 10:00 Primary care physician: Willian Malik MD Admitting clinician: Derrick Echevarria MD Attending physician on admission: Derrick Echevarria Consults: 03/22/20 00:01 Consult to Physician Routine Comment: Consulting Provider: Ekta Kay Reason for consultation: Elevated troponin, chest pain Has provider been notified: Yes Attending physician on discharge: Billy Stephens Discharging clinician: Billy Stephens Anticipated date of transfer: 03/23/20 Receiving physician/facility: Dr Derrick Mai at [place] (arranged by janitorial maintenance worker) DS: Admitting Diagnosis Admitting Diagnosis Admitting Diagnosis: Elevated troponin, chest pain, known aortic valve mass DS: Discharge Diagnosis Discharge Diagnosis (1) Prosthetic valve endocarditis: Code(s): T82.6XXA - Infection and inflammatory reaction due to cardiac valve prosthesis, initial encounter; I38 - Endocarditis, valve unspecified Status: Acute Assessment and Plan: Echo in the Cardiology clinic on 03/21 showing 1cm mobile AV mass on the ventricular side of the prosthesis. He states he has had fevers for about 1 month. He has been tested for COVID x2 over the past few weeks that are negative. He does have splenic infarcts as well as lung nodules. CT brain not showing any concerning findings. He may need MRI if he has any neurologic changes or meningeal signs. BCx negative so far so consider marantic or HACEK. Fever related to infectious process but fever curve improved. Will grow BCx out for 10 days ([facility] called and spoke with Amisha CasanovaAnna on 03/23/20). (2) Sepsis: Code(s): A41.9 - Sepsis, unspecified organism Status: Acute Assessment and Plan: Present on admission with fever, elevated WBC and tachycardia. Related to IE. As above. (3) Chest pain: Qualifiers: Chest pain type: unspecified Qualified Code(s): R07.9 - Chest pain, unspecified Code(s): R07.9 - Chest pain, unspecified Status: Acute Assessment and Plan: EKG showing borderline ST abnormalities in the high lateral leads and poor R-wave progression. Inferior Q waves noted as well. Trop has climbed now to 4.8. Cardiology following. Echo performed in the Cardiology clinic on 03/21 showing vegetation but no wall motion abnormalities. This could be related to cardiac abscess. Discussed with Cardiology with plan for transfer to tertiary hospital when bed available. Continue ASA, Metoprolol and Lovenox full dose. (4) Elevated troponin: Code(s): R79.89 - Other specified abnormal findings of blood chemistry Status: Acute Assessment and Plan: As above. (5) Leukocytosis: Qualifiers: Leukocytosis type: unspecified Qualified Code(s): D72.829 - Elevated white blood cell count, unspecified Code(s): D72.829 - Elevated white blood cell count, unspecified Status: Acute Assessment and Plan: WBC 13K on admission and worse today at 14.7K. Related to above. Blood cultures from 03/20 NGTD. BCx form 03/21 aolso NGTD. Continue broad spectrum abx. (6) Suspected COVID-19 virus infection: Code(s): Z20.828 - Contact with and (suspected) exposure to other viral communicable diseases Status: Acute Assessment and Plan: Patient started on droplet isolation for possible COVID-19. COVID results have returned negative so isolation stopped. (7) Essential (primary) hypertension: Code(s): I10 - Essential (primary) hypertension Status: Chronic Assessment and Plan: BP monitored and remained well controlled. We continued Metoprolol and Cozaar. (8) Generalized anxiety disorder: Code(s): F41.1 - Generalized anxiety disorder Status: Chronic Assessment and Plan: Mood stable. Xanax available prn. Transfer Discharge Sum: Med Medications Active
== END 2020-03-23 23:15 | disposition short-term general hospital (02) | DRG 314 ==
LOC: ANHED 22:59 → ANHICU 03-22 00:13
PROVIDERS: Internal Medicine; Internal Medicine Cardiovascular Disease; Admitting Provider Family Medicine; Emergency Provider Emergency Medicine; PCP Family Medicine; Visit Provider Internal Medicine
DX: T82.6XXA Infection and inflammatory reaction due to cardiac valve prosthesis, initial encounter (principal); A41.9 Sepsis, unspecified organism; I33.0 Acute and subacute infective endocarditis; Z20.828 Contact with and (suspected) exposure to other viral communicable diseases; I10 Essential (primary) hypertension; F41.1 Generalized anxiety disorder; R07.9 Chest pain, unspecified
CPT/HCPCS: 36415; 36600; 70450; 71275; 74174; 80053; 82805; 83605; 83735; 83880; 84443; 84484; 85025; 85610; 85730; 86140; 87040; 87077; 87635; 93005; 96361; 96365; 96372; 99285; A9270; C9803; J0131; J0456; J0692; J0696; J1650; J1885; J3370; J7030; Q9967; U0003

== ENCOUNTER 2020-05-31 16:03 | Outpatient (CLI) | payer BC, SELFPAY ==
--- NOTE | ~2020-05-31 | US_ITS ---
EXAMINATION: US venous doppler LE RT DATE: 05/31/2020 16:38 INDICATION: Right lower limb pain. TECHNIQUE: Grayscale ultrasound images without and with compression and Doppler ultrasound images of the right lower extremity veins were obtained. COMPARISON: None. FINDINGS: The visualized portions of right common femoral vein, profunda (deep) femoral vein, femoral vein, pop liteal vein, peroneal veins, posterior tibial veins, and greater saphenous vein outflow are patent. IMPRESSION: 1. No deep venous thrombosis. Reviewed, dictated and finalized at location A.
== END 2020-05-31 16:04 | disposition home or self-care (01) ==
PROVIDERS: PCP Family Medicine; Visit Provider Physician Assistant
DX: M79.661 Pain in right lower leg (principal)
CPT/HCPCS: 93971

== ENCOUNTER 2020-08-01 16:30 | Outpatient (RCR) | payer BC, SELFPAY ==
[2020-06-12 15:34] VITALS: PULSE 64
--- NOTE | 2020-08-08 15:04 | PCCPR ---
Addendum entered by Selma Thompson RN 08/13/20 11:14: Message left for Derrick requesting he give us a call back if he he has checked into his insurance.Since ours states if he he meets his deductible he is responsible for 30 % once deductible is met. Asking his plan for return or need to dc. Original Note: attempted to update patient on change to 3x per week on reduced hour schedule. MALISSA
== END 2020-08-22 16:47 | disposition home or self-care (01) ==
LOC: ANHCPREHAB 16:30
PROVIDERS: PCP Family Medicine; Visit Provider Nurse Practitioner Adult Health
DX: Z95.2 Presence of prosthetic heart valve (principal)
CPT/HCPCS: 93798

== ENCOUNTER → 2021-05-01 07:19 | Outpatient (CLI) | payer BC, SELFPAY ==
--- NOTE | ~2021-05-01 | US_ITS ---
EXAMINATION: US abdomen complete EXAM DATE: 05/01/2021 08:18 INDICATION: R74.8 - Abnormal levels of other serum enzymes. TECHNIQUE: Multiple grayscale and Doppler images of the complete abdomen were obtained (by a technolo gist who performed the scan) and subsequently reviewed. There is no prior study for comparison. FINDINGS: The abdominal aorta is normal in caliber. Visualized portion IVC is patent. The pancreatic head a nd body are normal in appearance. The pancreatic tail is not visualized. The liver has normal echogenicity and contour. There are no focal liver lesions identified. There is no evidence of intrahepatic biliary duct dilation. Portal venous flow was seen in the hepatopedal , normal direction and has normal Doppler waveform. Common bile duct measures 3 mm, which is normal. The gallbladder wall is normal in thickness, with ex pected amount of distention. No sonographic evidence of pericholecystic fluid. There is no cholelit hiases. Technologist performing exam reports patient did not demonstrate sonographic Cárdenas's sign. Please note that this sign is less reliable in patients who have received pain medication. Right kidney: There is normal contour and echogenicity. It measures 10.5 x 5.2 x 6.7 centimeters. There are no focal renal lesions identified. There is no hydronephrosis. Left kidney: There is normal contour and echogenicity. It measures 10.6 x 6.0 x 5.7 centimeters. T here are no focal renal lesions identified. There is no hydronephrosis. The spleen measures 10.7 centimeters and is morphologically normal. IMPRESSION: 1. Unremarkable complete abdominal ultrasound exam. Reviewed, dictated and finalized at location A.
== END ==
PROVIDERS: PCP Family Medicine; Visit Provider Family Medicine
DX: R74.8 Abnormal levels of other serum enzymes (principal); R10.9 Unspecified abdominal pain
CPT/HCPCS: 76700

== ENCOUNTER 2022-05-12 12:52 | Outpatient (NON) | payer BC, SELFPAY ==
[2022-05-12 21:18] LABS: IFOB Positive Control Positive; Immunochemical Fecal Occult Bl Negative (N)
== END 2022-05-12 12:53 | disposition home or self-care (01) ==
PROVIDERS: PCP Family Medicine; Visit Provider Physician Assistant
DX: D64.9 Anemia, unspecified (principal)
CPT/HCPCS: 82274

== ENCOUNTER 2022-09-25 14:04 | Outpatient (CLI) | payer BC, SELFPAY ==
[2022-09-25 20:29] LABS: Basophils Absolute Auto 0.1 K/mm3 (0.0-0.1); Basophils Percent Auto 0.7 % (0.2-1.2); Eosinophils Percent Auto 0.3 % (0-4.4); Hemoglobin 13.4 g/dL (14.0-18.0); Immature Granulocyte Absolute 0.01 K/mm3 (0.00-0.031); Immature Granulocyte Percent A 0.1 % (0-0.5); Immature Reticulocyte Fraction 7.5 % (3.0-15.9); Lymphocytes Absolute Auto 1.69 K/mm3 (0.9-3.2); Lymphocytes Percent Auto 24.7 % (18.3-44.2); Mean Corpuscular HGB Conc 33.5 g/dl (32-36); Mean Corpuscular Hemoglobin 29.3 pg (26-34); Mean Corpuscular Volume 87.5 fl (80-100); Mean Platelet Volume 10.1 fl (7.4-10.4); Monocytes Absolute Auto 0.6 K/mm3 (0.1-0.6); Monocytes Percent Auto 8.2 % (2.6-8.5); Neutrophils Absolute Auto 4.5 K/mm3 (1.3-6.7); Platelet Count Result 270 k/mm3 (150-375); Red Blood Count 4.57 M/mm3 (4.6-6.20); Red Cell Distribution Width 12.9 % (11.5-14.5); Reticulocyte Percent 2.03 % (0.7-4.3); Reticulocytes Absolute 0.09 B/L (32.2-175.7); White Blood Count 6.8 K/mm3 (4.5-10.0)
[2022-09-25 23:21] LABS: Folic Acid > 20.0 ng/mL (2.76->20)
[2022-09-26 03:20] LABS: Iron 80 ug/dL (49-181)
[2022-09-26 03:30] LABS: Percent Iron Saturation 22 % (20-50)
== END 2022-09-25 14:05 | disposition home or self-care (01) ==
LOC: ANHGOSHLAB 14:05
PROVIDERS: PCP Family Medicine; Visit Provider Family Medicine
DX: D64.9 Anemia, unspecified (principal)
CPT/HCPCS: 36415; 82607; 82728; 82746; 83540; 83550; 85025; 85046

== ENCOUNTER 2023-07-30 11:49 | Inpatient (IN) | payer BC, SELFPAY ==
[2023-07-30] VITALS (27 sets, daily range): BP systolic 99–118; BP diastolic 57–75; PULSE 66–92; RESP 14–18; TEMP 37–38.1; O2SAT 95–100; BMI 26.7; BMI 26.2
--- NOTE | ~2023-07-30 | XR_ITS ---
XR chest 1V portable 07/30/2023 12:53 Indication: Cough and fever Procedure: AP portable chest Comparison: 08/03/2018 Findings: Heart size normal. Status post median sternotomy for CABG. There is a prosthetic aortic juan francisco ve. No focal air space disease, pulmonary edema, pleural effusion or suspected pneumothorax. Impression: 1: No acute cardiopulmonary disease. Reviewed, dictated and finalized at location L. DULE CHECKER Impression: 1: No acute cardiopulmonary disease.
--- NOTE | 2023-07-30 12:14 | ED.GENADULT ---
HPI - General Adult General Chief complaint: Unspecified Stated complaint: septic/sent by pmd Time Seen by Provider: 07/30/23 12:03 History of Present Illness HPI narrative: Patient is a 47 year old male with history of congenital bicuspid aortic valve, endocarditis here with fatigue, night sweats, rigors, and positive blood cultures. Patient notes that around Thanksgiving him and his entire family had some respiratory symptoms. He initially improved but then about 2 weeks ago started feeling poorly again. The rest the family seemed to recover without issues. He notes that for about 2 weeks he has had increased fatigue, chills, night sweats, body aches. He went to his primary care doctor's office on 07/28 where lab work was performed. They were contacted that his blood cultures were positive and he should come to the ER to get started on IV antibiotics. Patient denies any new sick contacts. No diarrhea, no abdominal pains, no urinary symptoms. He does note history of endocarditis in the past. He had a prior prosthetic valve replacement which grew tissue on it per family and then he had a bovine valve placed several years ago. He had endocarditis in 2019 and was transferred from this hospital to [place]. Related Data Home Medications Medication Instructions Recorded Confirmed multivitamin 1 tablet PO DAILY 12/28/19 09/25/22 ferrous fumarate 325 mg (106 mg 325 mg PO DAILY 07/30/23 iron) tablet Allergies Allergy/AdvReac Type Severity Reaction Status Date / Time No Known Allergies Allergy Mild Verified 07/30/23 11:19 Review of Systems Review of Systems: All systems reviewed & are unremarkable except as noted in HPI and below PMFSH Past Medical History Medical History Anemia, hemolytic, acquired Elevated liver enzymes Essential (primary) hypertension Generalized anxiety disorder Herniated lumbar intervertebral disc terminal gauger supervisor (current) use of anticoagulants Obesity (BMI 30.0-34.9) Overweight (BMI 25.0-29.9) Prediabetes Pure hypercholesterolemia, unspecified Sepsis Surgical History Surgical History H/O heart valve replacement with bioprosthetic valve History of prosthetic heart valve Family History Family History Father Hypercholesteremia Social History Social History Smoking packs per day: 0.5 Smoking cigarettes per day: 10.0 Years smoked: 5 Smoking pack-years: 2.50 Smoking status: Never smoker Smoking end date: 08/03/04 Alcohol intake: current Substance use: unknown Gender identity (if verbalized by the patient): Male Sexual Orientation (if Verbalized by the Patient): Straight or Heterosexual Spiritual care concerns: No Exam Narrative: GENERAL: Well-appearing, well-nourished, and in no acute distress. HEAD: Normocephalic, atraumatic. EYES: PERRLA and EOMI. ENT: Nares clear. Mucous membranes moist. NECK: Supple. CHEST: Clear to auscultation. No respiratory distress. HEART: Regular rate and rhythm. Normal peripheral pulses. Holosystolic murmur appreciated. ABDOMEN: Soft, nontender, nondistended. EXTREMITIES: Normal range of motion. No edema. SKIN: Warm, dry, no rash. NEURO: No focal deficits. Alert and oriented x3. PSYCH: Normal mood and affect. Course Course Emergency Course: Chart review performed. Patient here via PCP with concerns of sepsis. He has reportedly had fatigue, nausea and fever for 2-4 weeks. Lab work from 07/28/23 shows WBC of 14.6. Blood culture from 07/28/23 showed gram positive cocci in clusters. Triage vitals show afebrile, normotensive, not tachycardic. Transfer summary on 03/23/20 reviewed. It appears he was transferred to [place] with concern for endocarditis vs cardiac abscess. 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 P
--- NOTE | 2023-07-30 12:16 | ECG_ITS ---
Measurements Intervals [place] Rate: 68 P: 46 PA: 152 QRS: 77 QRSD: 99 T: 63 QT: 423 QTc: 453 Interpretive Statements SINUS RHYTHM MINIMAL ST DEPRESSION [0.025+ mV ST DEPRESSION] COMPARED TO ECG 03/21/2020 22:06:53 SINUS RHYTHM NOW PRESENT Electronically Signed On 07-30-2023 15:08:19 [employer] by Benedicto Tello M.D.
[2023-07-30 12:56] LABS: Basophils Percent Auto 0.3 % (0.2-1.2); Eosinophils Percent Auto 0.1 % (0-4.4); Hematocrit 28.3 % (42.0-52.0); Hemoglobin 9.2 g/dL (14.0-18.0); Immature Granulocyte Percent A 0.6 % (0-0.5); Lymphocytes Absolute Auto 1.04 K/mm3 (0.9-3.2); Lymphocytes Percent Auto 6.7 % (18.3-44.2); Mean Corpuscular HGB Conc 32.5 g/dl (32-36); Mean Corpuscular Hemoglobin 28.1 pg (26-34); Mean Corpuscular Volume 86.5 fl (80-100); Monocytes Absolute Auto 1.3 K/mm3 (0.1-0.6); Monocytes Percent Auto 8.4 % (2.6-8.5); Neutrophils Absolute Auto 13.1 K/mm3 (1.3-6.7); Neutrophils Percent Auto 83.9 % (45.5-73.1); Platelet Count Result 209 k/mm3 (150-375); Red Blood Count 3.27 M/mm3 (4.6-6.20); Red Cell Distribution Width 12.3 % (11.5-14.5); White Blood Count 15.6 K/mm3 (4.5-10.0)
[2023-07-30 13:05] LABS: INR 1.3
[2023-07-30 13:06] LABS: Lactic Acid Reflex 0.8 mmol/L (0.7-2.0); Partial Thromboplastin Time 47.9 SECONDS (22.3-36.8)
[2023-07-30 13:08] LABS: Alanine Aminotransferase 46 U/L (6-50); Albumin Level 3.3 g/dL (3.5-5.1); Alkaline Phosphatase 60 U/L (38-126); Anion Gap 6 mmol/L (8-16); Aspartate Amino Transferase 40 U/L (17-59); Bilirubin,Total 0.7 mg/dL (0.2-1.3); Blood Urea Nitrogen 10 mg/dL (9-20); Calcium 8.6 mg/dL (8.4-10.2); Carbon Dioxide 25 mmol/L (22-30); Chloride 93 mmol/L (98-107); Estimated CRCL calculation 111 ml/min; Estimated Glomerular Filt Rate > 60; Glucose 116 mg/dL (65-110); Potassium 4.6 mmol/L (3.4-5.0); Sodium 124 mmol/L (137-145)
[2023-07-30 13:21] LABS: Appearance Urine Clear (Clear); Bilirubin Urine Negative (Negative); Blood Urine Negative (Negative); Color Urine Yellow (Yellow); Glucose Urine UA Negative (Negative); Ketones Urine Trace mg/dL (Negative); Leukocyte Esterase Ur Negative LEU/UL (Negative); Nitrate Urine Negative (Negative); Protein Urine Negative (Negative); Specific Grav Ur 1.009 (1.001-1.035); Urobilinogen Urine 0.2 mg/dL (<2.0); pH Urine 7.5 (5.0-9.0)
[2023-07-30 13:22] LABS: CRP 16.1 mg/dL (<1.0)
[2023-07-30 13:27] LABS: Add Urine Microscopic? NO
[2023-07-30 13:27] LABS: Troponin I 0.271 ng/mL (0.000-0.034)
[2023-07-30] MEDS: cefTRIAXone 2 GM/NS 100 ML 2 GM/100 ML BAG IVPB (13:27)
[2023-07-30 13:28] LABS: Erythrocyte Sedimentation Rate 42 mm/hr (0-20)
[2023-07-30 13:32] LABS: Influenza A QL RT-PCR Negative (Negative); Influenza B QL RT-PCR Negative (Negative); RSV RNA, RT-PCR Negative (Negative); SARS-CoV-2 RNA PCR Negative (Negative)
[2023-07-30] MEDS: VANCOMYCIN 2,000 MG/NS 500 ML 2,000 MG/500 ML BAG 250 MG IVPB (14:12)
[2023-07-30 17:52] LABS: Troponin I 0.265 ng/mL (0.000-0.034)
--- NOTE | 2023-07-30 21:30 | PM.IMHP ---
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 He has been doing well since then, only had developed palpitations for which he was prescribed Metoprolol. He last saw Dr. Yoder on 05/06/22. A few weeks prior to admission the family had developed URI symptoms. The pt had a dry cough. Everyone else got better but he has had 2 weeks of fever, night sweats, chills, weakness, fatigue, poor appetite. The dry cough is worse when he takes deep inspiration. He denies nausea/vomiting/diarrhea/shortness of breath/chest pain. 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 Review of Systems Review of Systems: All systems reviewed & are unremarkable except as noted in HPI and below (HPI) [facility] Past Medical History Medical History Anemia, hemolytic, acquired Elevated liver enzymes Essential (primary) hypertension Generalized anxiety disorder Herniated lumbar intervertebral disc [facility] (current) use of anticoagulants Obesity (BMI 30.0-34.9) Overweight (BMI 25.0-29.9) Prediabetes Pure hypercholesterolemia, unspecified Sepsis Surgical History Surgical History H/O heart valve replacement with bioprosthetic valve History of prosthetic heart valve Family History Family History Father Hypercholesteremia Social History Social History Smoking packs per day: 0.5 Smoking cigarettes per day: 10.0 Years smoked: 5 Smoking pack-years: 2.50 Smoking status: Never smoker Smoking end date: 08/03/04 Alcohol intake: current Substance use: unknown Gender identity (if verbalized by the patient): Male Sexual Orientation (if Verbalized by the Patient): Straight or Heterosexual Spiritual care concerns: No Meds Home Medications and Allergies Home Medications Medication Instructions Recorded Confirmed Type multivitamin 1 tablet PO DAILY 12/28/19 09/25/22 History atomoxetine 25 mg capsule 75 mg PO DAILY #90 caps 02/27/22 09/25/22 Rx (Strattera) alprazolam 0.5 mg tablet (Xanax) 0.5 mg PO .q 6 hr PRN anxiety #10 06/05/23 Rx tabs atorvastatin 10 mg tablet (Lipitor) 10 mg PO QHS #90 tabs 07/30/23 Rx ferrous fumarate 325 mg (106 mg 325 mg PO DAILY 07/30/23 History iron) tablet Allergies Allergy/AdvReac Type Severity Reaction Status Date / Time No Known Allergies Allergy Mild Verified 07/30/23 11:19 Vital Signs Vital Signs - 24 hr 07/30/23 11:50 07/30/23 12:13 07/30/23 12:12 Temperature 98.6 F Pulse Rate 74 70 70 Respiratory Rate 18 18 18 Blood Pressure 110/57 L 112/66 112/66 Pulse Oximetry 100 100 100 Oxygen Delivery Room Air 07/30/23 12:16 07/30/23 12:17 07/30/23 12:34 Temperature Pulse Rate 67 Respiratory Rate 18 16 16 Blood Pressure 109/64 Pulse Oximetry 100 100 100 Oxygen Delivery 07/30/23 14:01 07/30/23 14:02 07/30/23 14:31 Temperature Pulse Rate 68 66 Respiratory Rate 15 14 Blood Pressure 101/67 99/68 L Pulse Oximetry 100 100 100 Oxygen Delivery 07/30/23 15:17 07/30/23 15:47 07/30/23 16:02 Temperature 99.8 F H Pulse Rate 68 69 Respiratory Rate 16 16 Blood Pressure 103/64 Pulse Oximetry 100 95 100 Oxygen Delivery 07/30/23 16:04 07/30/23 16:15 07/30/23 16:16 Temperature Pulse Rate 70 71 Respiratory Rate 17 15 Blood Pressure 115/66 110/69 Pulse Oximetry 100 100 100 Oxygen Delivery 07/30/23 16:31 07/30/23 17:01 07/30/23 17:15 Temperat
--- NOTE | 2023-07-30 22:45 | ADMGEN ---
This patient, Derrick Garcia, was admitted to IMU Room 214-01 @ 2145 Patient/family oriented to hospital policies and general routines including ID bracelet, bed and alarms, visiting hours, pain management, procedures, bathroom and other care routines, personal items, smoking policy, room service/diet, and visiting hours. Information on how to activate the Rapid Response Team has been discussed. Patient/Family are encouraged to report perceived risks to care and to ask questions if they do not understand what they are told or what they should do.
[2023-07-30] MEDS: ACETAMINOPHEN 325 MG TABLET 650 MG PO (23:38)
[2023-07-30] MEDS: SODIUM CHLORIDE 0.9% IV 1,000 ML 100 ML IV CONT (23:40)
[2023-07-31] VITALS (20 sets, daily range): BP systolic 95–116; BP diastolic 51–88; PULSE 60–84; RESP 14–23; TEMP 36.2–36.8; O2SAT 97–100
[2023-07-31] MEDS: VANCOMYCIN 1,500 MG/NS 500 ML 1,500 MG/500 ML BAG 250 MG IVPB ×2 (02:18→13:57)
[2023-07-31] MEDS: ACETAMINOPHEN 325 MG TABLET 650 MG PO ×2 (03:39→09:03)
[2023-07-31 05:27] LABS: Basophils Absolute Auto 0.1 K/mm3 (0.0-0.1); Basophils Percent Auto 0.4 % (0.2-1.2); Eosinophils Absolute Auto 0.1 K/mm3 (0-0.3); Eosinophils Percent Auto 0.6 % (0-4.4); Hemoglobin 9.7 g/dL (14.0-18.0); Immature Granulocyte Absolute 0.09 K/mm3 (0.00-0.031); Immature Granulocyte Percent A 0.7 % (0-0.5); Immature Reticulocyte Fraction 11.8 % (3.0-15.9); Lymphocytes Absolute Auto 1.59 K/mm3 (0.9-3.2); Lymphocytes Percent Auto 11.5 % (18.3-44.2); Mean Corpuscular HGB Conc 33.4 g/dl (32-36); Mean Corpuscular Hemoglobin 28.7 pg (26-34); Mean Corpuscular Volume 85.8 fl (80-100); Mean Platelet Volume 9.3 fl (7.4-10.4); Monocytes Absolute Auto 1.7 K/mm3 (0.1-0.6); Monocytes Percent Auto 12.1 % (2.6-8.5); Neutrophils Absolute Auto 10.3 K/mm3 (1.3-6.7); Neutrophils Percent Auto 74.7 % (45.5-73.1); Platelet Count Result 216 k/mm3 (150-375); Red Blood Count 3.38 M/mm3 (4.6-6.20); Red Cell Distribution Width 12.2 % (11.5-14.5); Reticulocyte Hemoglobin Conten 29.1 pg (28.2-35.7); Reticulocyte Percent 1.22 % (0.7-4.3); Reticulocytes Absolute 0.04 M/mm3 (0.02-0.1); White Blood Count 13.8 K/mm3 (4.5-10.0)
[2023-07-31 05:41] LABS: Estimated CRCL calculation 98 ml/min; Estimated Glomerular Filt Rate > 60; Lactate Dehydrogenase 308 U/L (120-246); Magnesium 2.1 mg/dL (1.6-2.3)
[2023-07-31 06:02] LABS: Procalcitonin 0.1 ng/mL
[2023-07-31] MEDS: cefTRIAXone 2 GM/NS 100 ML 2 GM/100 ML BAG IVPB (09:05)
--- NOTE | 2023-07-31 09:29 | PM.CNCAR ---
Assessment and Plan Assessment and plan (1) Sepsis: Qualifiers: Sepsis type: sepsis due to unspecified organism Sepsis acute organ dysfunction status: with acute organ dysfunction Acute respiratory failure type: unspecified Code(s): A41.9 - Sepsis, unspecified organism Status: Acute Assessment and Plan: Blood cultures obtained as an outpatient on 07/28 shows gram positive cocci in clusters isolated from aerobic and anaerobic bottles. Blood cultures from 07/30 are currently pending. Has been started on Vancomycin and Ceftriaxone. Will need to evaluate for prosthetic valve endocarditis with LADY. LADY procedure discussed with the patient, including indications for the procedure, procedure details, risks vs benefits, etc. Patient agreeable to proceed with LADY. Will plan for LADY today. Patient to remain NPO for LADY. (2) History of prosthetic heart valve: Code(s): Z95.2 - Presence of prosthetic heart valve Status: Acute Assessment and Plan: Last transthoracic echocardiogram in May 2022 showed normal LVEF of 67%, normal RVSF, normal appearing prosthesis with mean gradient of 19mmHg with mild aortic regurgitation. Evaluate for infective endocarditis with LADY as noted above. (3) Bacteremia: Code(s): R78.81 - Bacteremia Status: Acute Assessment and Plan: On antibiotics as per primary team. (4) Elevated troponin: Code(s): R79.89 - Other specified abnormal findings of blood chemistry Status: Acute Assessment and Plan: Mildly elevated, flat. Not consistent with an acute coronary syndrome. History of Present Illness History of Present Illness Consult date/time: 07/31/23 09:29 Requesting physician: Sofya Figueredo MD Consult reason: Other (Positive blood cultures, elevated troponin) Reason For Visit: Elevated Troponin/Pos Blood Culture/Concern for En Narrative: We are consulted for positive blood cultures, positive troponins. This is a 47 year old male who had a mechanical AVR done at [place] at a young age. 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 He had redo surgery performed in 2014 at [place] removing that valve and redo replacing it with a 23mm Magna bioprosthetic valve. In the summer of 2019, he had a smoldering febrile illness and had prosthetic valve endocarditis with significant regurgitation and he was transferred from [facility] to [place] for yet another AVR. He underwent excision of the infected valve, reconstruction of his aortic root and placement of a 21mm Inspiris bioprosthetic valve. He follows with Dr. Yoder in the office. Last saw Dr. Yoder in May 2022. Last transthoracic echocardiogram in May 2022 showed normal LVEF of 67%, normal RVSF, normal appearing prosthesis with mean gradient of 19mmHg with mild aortic regurgitation. Patient now presents to [facility] for evaluation of positive blood cultures. Patient reports that over the past month, he has felt fatigued, has been having night sweats, chills during the day. His family members were sick recently. Blood cultures obtained as an outpatient on 07/28 shows gram positive cocci in clusters isolated from aerobic and anaerobic bottles. Blood cultures from 07/30 are currently pending. Labwork notable for WBC of 15.6 on admission, now down to 13.8. His Hgb is at 9.2, was 13.4 back in September 2022. Troponins are 0.271, 0.265. EKG with sinus rhythm. Review of Systems Review of Systems: All systems reviewed & are unremarkable except as noted in HPI and below (HPI) [facility] Past Medical History Medical History Anemia, hemolytic, acquired Elevated liver enzymes Essential (primary) hypertension Generalized anxiety disorder Herniated lumbar intervertebral disc assisted (current) use
--- NOTE | 2023-07-31 09:48 | WPDMODSED ---
Moderate Sedation Note-Pt Data Patient Data Diagnosis: Bacteremia Present Complaint: Bacteremia Procedure to be performed/Plan: Transesohageal echocardiogram Allergies Allergy/AdvReac Type Severity Reaction Status Date / Time No Known Allergies Allergy Mild Verified 07/30/23 11:19 Home Medications Medication Instructions Recorded Confirmed Type multivitamin 1 tablet PO DAILY 12/28/19 07/30/23 History alprazolam 0.5 mg tablet (Xanax) 0.5 mg PO .q 6 hr PRN anxiety #10 06/05/23 07/30/23 Rx tabs atorvastatin 10 mg tablet (Lipitor) 10 mg PO QHS #90 tabs 07/30/23 07/30/23 Rx ferrous fumarate 325 mg (106 mg 325 mg PO DAILY 07/30/23 07/30/23 History iron) tablet Current Medications: Active Medications Acetaminophen (Acetaminophen 325 Mg Tablet) 650 mg PO Q4H PRN PRN Reason: Mild Pain (1-3) or Fever Last Admin: 07/31/23 09:03 Dose: 650 mg Vancomycin HCl (Vancomycin 1,500 Mg/Ns 500 Ml) 1,500 mg in 500 mls @ 250 mls/hr IVPB Q12H [facility] Last Infusion: 07/31/23 04:18 Dose: Infused Sodium Chloride (Normal Saline Iv) 1,000 mls @ 100 mls/hr IV CONT .Q10H [facility] Last Admin: 07/30/23 23:40 Dose: 100 mls/hr Ceftriaxone Sodium (Rocephin 2 Gm/Ns 100 Ml) 2 gm in 100 mls @ 200 mls/hr IVPB Q24H [facility] Last Admin: 07/31/23 09:05 Dose: 200 mls/hr Sedation/Anesthesia: No previous sedation/anesthesia problems (including family history). [facility] Past Medical History Medical History Anemia, hemolytic, acquired Elevated liver enzymes Essential (primary) hypertension Generalized anxiety disorder Herniated lumbar intervertebral disc chronic specialist (current) use of anticoagulants Obesity (BMI 30.0-34.9) Overweight (BMI 25.0-29.9) Prediabetes Pure hypercholesterolemia, unspecified Sepsis Surgical History Surgical History H/O heart valve replacement with bioprosthetic valve History of prosthetic heart valve Family History Family History Father Hypercholesteremia Social History Social History Smoking packs per day: 0.5 Smoking cigarettes per day: 10.0 Years smoked: 5 Smoking pack-years: 2.50 Smoking status: Never smoker Second hand tobacco smoke exposure: No Smoking end date: 08/03/04 Alcohol intake: never Substance use: never Do You Feel Safe in your Home?: Yes Lack of Transportation: No Lack of Food: Never True Current Housing: I Have Housing Concerned About Future Housing: No Difficulty Paying Gas/Electric Bills: No Difficulty Paying for Meds: No Currently Unemployed: No Education: Bachelor's Degree Difficulty w/ Childcare or Family Care: No Gender identity (if verbalized by the patient): Male Sexual Orientation (if Verbalized by the Patient): Straight or Heterosexual Spiritual care concerns: No Mod Sed Physical Exam Physical Exam Pre Procedural Exam: Normal: Appearance, Lungs, Heart Rate, Heart Rhythm, Neuro Exam, Extremities and Skin Hours since solid foods: 12 Hours since liquid intake: 8 Mallampati Classification: class III Internal Medicine - PN: Obj Da Vital Signs Vital Signs: Vital Signs - 24 hr 07/30/23 11:50 07/30/23 12:13 07/30/23 12:12 Temperature 37.0 C Pulse Rate 74 70 70 Respiratory Rate 18 18 18 Blood Pressure 110/57 L 112/66 112/66 Pulse Oximetry 100 100 100 Oxygen Delivery Room Air 07/30/23 12:16 07/30/23 12:17 07/30/23 12:34 Temperature Pulse Rate 67 Respiratory Rate 18 16 16 Blood Pressure 109/64 Pulse Oximetry 100 100 100 Oxygen Delivery 07/30/23 14:01 07/30/23 14:02 07/30/23 14:31 Temperature Pulse Rate 68 66 Respiratory Rate 15 14 Blood Pressure 101/67 99/68 L Pulse Oximetry 100 100 100 Oxygen Delivery 07/30/23 15:17 07/30/23 15:47 07/30/23 16:02 Temperature 37.7 C H
--- NOTE | 2023-07-31 10:48 | WPDTEECHO ---
LADY TransEsophageal Echocardiogram Date of procedure: 07/31/23 Procedure Type: Date of Procedure: 07/31/2023 Brief History Of Present Illness: This is a 47 year old male who had a mechanical AVR done at [place] at a young age. 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 He had redo surgery performed in 2014 at [place] removing that valve and redo replacing it with a 23mm Magna bioprosthetic valve. In the summer of 2019, he had a smoldering febrile illness and had prosthetic valve endocarditis with significant regurgitation and he was transferred from [facility] to [place] for yet another AVR. He underwent excision of the infected valve, reconstruction of his aortic root and placement of a 21mm Inspiris bioprosthetic valve. Patient now presents to [facility] for evaluation of positive blood cultures. Patient reports that over the past month, he has felt fatigued, has been having night sweats, chills during the day. His family members were sick recently. Blood cultures obtained as an outpatient on 07/28 shows gram positive cocci in clusters isolated from aerobic and anaerobic bottles. Blood cultures from 07/30 are currently pending. Labwork notable for WBC of 15.6 on admission, now down to 13.8. His Hgb is at 9.2, was 13.4 back in September 2022. Troponins are 0.271, 0.265. EKG with sinus rhythm. Patient is referred for LADY for concern for prosthetic valve endocarditis. Procedure In Detail: After verbal and written informed consent was obtained, the patient risks, benefits, and alternatives explained in detail. The patient agreed to proceed with the plan of care as outlined above.?The patient was evaluated at bedside [facility].?The posterior oropharynx, neck, and jaw angle all within normal limits on examination. Lungs were clear to auscultation. See pre-sedation note for further details. The patient was then placed in the appropriate 30 to 45 degree angle supine position at a slight left lateral decubitus position.?Patient was monitored throughout the study with telemetry, oxygen saturation, end-tidal CO2 monitoring, blood pressure, heart rate, and respirations.? The posterior hypopharynx was then locally anesthetized using repeated administration of Hurricaine spray as well as gargled viscous lidocaine.? After local anesthetic of the posterior hypopharynx was achieved and the oral bite block placed, moderate sedation was administered.? After confirmation of adequate moderate sedation, the transesophageal echocardiogram probe was advanced through the oral bite block into the posterior hypopharynx and into the esophagus easily and without complication.? Multiple, multiplanar echocardiographic images were obtained in multiple standard re- projections.? Continuous-wave, and color-flow Doppler were utilized in conjunction with this study.? At the conclusion of the study, the transesophageal echocardiogram probe was removed easily and without complication.? The patient tolerated the procedure well without difficulty.? Patient was in sinus rhythm throughout the study. Moderate Sedation/Anesthesia administration: Patient reports no prior problems with sedation/anesthesia. Please see pre-sedation noted for physical examination documentation. As noted above, after adequate local anesthesia of the posterior hypopharynx was achieved, a total of?5mg intravenous Versed and a total of 125mcg intravenous Fentanyl in multiple divided doses was administered for moderate sedation.? Sedation start time was 10:12 and end time was 10:26 for a total intra-service/procedure face-face time of 14 minutes.? Sedation was administered by a qualified/certified observer Patricia Sauceda RN under my supervision with intra-procedure [id number] observation and management throughout the entirety of the procedure.? There were no other issu
--- NOTE | 2023-07-31 16:06 | PM.TDS ---
Transfer Discharge Sum: Prov Provider Date of admission: 07/30/23 14:28 Primary care physician: Willian Malik MD Admitting clinician: April Tyson DO Attending physician on admission: Danielle Franklin Consults: 07/30/23 Consult to Physician Routine Comment: Consulting Provider: Divina Patton on call pharmacy technician/MD group to consult: Divina Patton ([facility]) Reason for consultation: concern for endocarditis, elevated troponin Has provider been notified: Yes Attending physician on discharge: Pravin Chairez Discharging clinician: Pravin Chairez Anticipated date of transfer: 07/31/23 Receiving physician/facility: Dr. Ashok Manjarrez, Hospitalist Physician, [place], [place]. DS: Admitting Diagnosis Discharge Date 07/31/2023: Admitting Diagnosis Fever rigor and chills DS: Discharge Diagnosis Discharge Diagnosis (1) Infective endocarditis: Code(s): I33.0 - Acute and subacute infective endocarditis Status: Acute (2) Pure hypercholesterolemia, unspecified: Code(s): E78.00 - Pure hypercholesterolemia, unspecified Status: Chronic (3) shelter (current) use of anticoagulants: Code(s): Z79.01 - parts counterman (current) use of anticoagulants Status: Acute (4) Essential (primary) hypertension: Code(s): I10 - Essential (primary) hypertension Status: Chronic (5) History of prosthetic heart valve: Code(s): Z95.2 - Presence of prosthetic heart valve Status: Acute (6) Generalized anxiety disorder: Code(s): F41.1 - Generalized anxiety disorder Status: Chronic (7) Herniated lumbar intervertebral disc: Code(s): M51.26 - Other intervertebral disc displacement, lumbar region Status: Acute (8) Prosthetic valve endocarditis: Code(s): T82.6XXA - Infection and inflammatory reaction due to cardiac valve prosthesis, initial encounter; I38 - Endocarditis, valve unspecified Status: Acute (9) Noncompliance: Code(s): Z91.19 - Patient's noncompliance with other medical treatment and regimen Status: Acute (10) Obesity (BMI 30.0-34.9): Code(s): E66.9 - Obesity, unspecified Status: Acute (11) Overweight (BMI 25.0-29.9): Code(s): E66.3 - Overweight Status: Acute (12) parts counterman use of drug: Code(s): Z79.899 - Other buttermaker helper (current) drug therapy Status: Acute Transfer Discharge Sum: Med Medications Active and Home Medications: Home Medications multivitamin 1 tablet PO DAILY 12/28/19 [History Confirmed 07/30/23] alprazolam 0.5 mg tablet (Xanax) 0.5 mg PO .q 6 hr PRN anxiety #10 tabs 06/05/23 [Rx Confirmed 07/30/23] atorvastatin 10 mg tablet (Lipitor) 10 mg PO QHS #90 tabs 07/30/23 [Rx Confirmed 07/30/23] ferrous fumarate 325 mg (106 mg iron) tablet 325 mg PO DAILY 07/30/23 [History Confirmed 07/30/23] Active Medications Acetaminophen (Acetaminophen 325 Mg Tablet) 650 mg PO Q4H PRN PRN Reason: Mild Pain (1-3) or Fever Last Admin: 07/31/23 09:03 Dose: 650 mg Vancomycin HCl (Vancomycin 1,500 Mg/Ns 500 Ml) 1,500 mg in 500 mls @ 250 mls/hr IVPB Q12H [facility] Last Admin: 07/31/23 13:57 Dose: 250 mls/hr Sodium Chloride (Normal Saline Iv) 1,000 mls @ 100 mls/hr IV CONT .Q10H [facility] Last Admin: 07/30/23 23:40 Dose: 100 mls/hr Ceftriaxone Sodium (Rocephin 2 Gm/Ns 100 Ml) 2 gm in 100 mls @ 200 mls/hr IVPB Q24H [facility] Last Admin: 07/31/23 09:05 Dose: 200 mls/hr Transfer Discharge Sum: Hosp Hospital Course Hospital course: H&P: HPI History of Present Illness Date/Time: 07/30/23? 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 He has been do
[2023-07-31] MEDS: LORazepam INJ (*CRX) 2 MG/ML VIAL 0.5 MG IV PUSH (16:46)
[2023-08-06 04:47] LABS: Haptoglobin <8 mg/dL (43-212)
== END 2023-07-31 17:55 | disposition short-term general hospital (02) | DRG 314 ==
LOC: ANHED 12:20 → ANHIMU 15:40
PROVIDERS: General Practice; Internal Medicine; Admitting Provider Student in an Organized Health Care Education/Training Program; Emergency Provider Student in an Organized Health Care Education/Training Program; PCP Family Medicine; Visit Provider Family Medicine
PROC: B24BZZ4 Ultrasonography of Heart with Aorta, Transesophageal (ICD-10-PCS; CPT 93312; principal; 2023-07-31 10:00)
DX: T82.6XXA Infection and inflammatory reaction due to cardiac valve prosthesis, initial encounter (principal); A41.9 Sepsis, unspecified organism; I33.0 Acute and subacute infective endocarditis; D59.9 Acquired hemolytic anemia, unspecified; E87.1 Hypo-osmolality and hyponatremia; Z91.199 Patient's noncompliance with other medical treatment and regimen due to unspecified reason; R79.89 Other specified abnormal findings of blood chemistry; Z20.822 Contact with and (suspected) exposure to COVID-19; F41.1 Generalized anxiety disorder; R73.03 Prediabetes; E78.00 Pure hypercholesterolemia, unspecified; I10 Essential (primary) hypertension; Z79.01 Long term (current) use of anticoagulants
CPT/HCPCS: 36415; 71045; 80053; 81003; 82565; 83010; 83605; 83615; 83735; 84145; 84484; 85025; 85046; 85610; 85652; 85730; 86140; 87040; 87076; 87077; 87186; 87637; 93005; 93312; 93320; 93325; 96365; 99285; A9270; J0696; J2060; J2250; J2704; J3010; J3370; J7030